=== PATIENT | male | born 1940 | race Caucasian/White ===

== ENCOUNTER 2016-09-11 07:30 | Inpatient (IN) | payer MEDICARE, OTHER ==
[2016-09-13] MEDS ORDERED: Lidocaine 1% with EPINEPHrine 1:100,000 50 ML MDV ONE (06:48)
[2016-09-13] MEDS ORDERED: Bupivacaine 0.5% 50 ML MDV ONE (06:48)
[2016-09-13] MEDS ORDERED: Dextrose 5%-Lactated Ringers 1,000 ML IV SCH ×2 (07:30→13:30)
[2016-09-13] MEDS ORDERED: HYDROmorphone/Normal Saline 15 MG/30 ML PCA IV PRN (08:09)
[2016-09-13] MEDS ORDERED: Naloxone 0.4 MG/ML SDV IVPUSH PRN (08:09)
[2016-09-13] MEDS ORDERED: Naloxone 0.4 MG/ML SDV IV PRN (08:12)
[2016-09-13] MEDS ORDERED: ceFAZolin 2 GM in Premix Bag 1 BAG IV ONE (08:45)
[2016-09-13] MEDS ORDERED: fentaNYL 250 MCG/5 ML SDV ONE (10:23)
[2016-09-13] MEDS ORDERED: Dexamethasone 4 MG/ML SDV ONE (10:27)
[2016-09-13] MEDS ORDERED: Ondansetron 4 MG/2 ML SDV ONE (10:27)
[2016-09-13] MEDS ORDERED: Rocuronium 50 MG/5 ML Vial ONE (10:27)
[2016-09-13] MEDS ORDERED: Propofol 200 MG/20 ML SDV ONE (10:27)
[2016-09-13] MEDS ORDERED: Neostigmine Methylsulfate 1 MG/ML 5 ML Syringe ONE (10:27)
[2016-09-13] MEDS ORDERED: Succinylcholine/Normal Saline 200 MG/10 ML Syringe ONE (10:27)
[2016-09-13] MEDS ORDERED: Linezolid 200 MG/100 ML Bag IV ONE (11:00)
[2016-09-13] MEDS: Ketoconazole 2% Crm 30 GM Tube TOP SCH ×2 (11:19→20:18)
[2016-09-13] MEDS ORDERED: Ondansetron 4 MG/2 ML SDV IVPUSH PRN (13:24)
[2016-09-13] MEDS: Carbidopa/Levodopa 25-100 MG Tab PO SCH ×2 (15:20→20:19)
[2016-09-13] MEDS: ceFAZolin 2 GM in Sodium Chloride 0.9% 50 ML IV SCH (17:26)
[2016-09-13] MEDS: Metoprolol Tartrate 50 MG Tab PO SCH (20:17)
[2016-09-13] MEDS: Melatonin 3 MG Tab PO SCH (20:18)
[2016-09-13] MEDS: Sennosides 8.6 MG Tab PO SCH (20:19)
[2016-09-13] MEDS: Acetaminophen/HYDROcodone 325-5 MG Tab PO PRN (20:25)
[2016-09-14] MEDS: ceFAZolin 2 GM in Sodium Chloride 0.9% 50 ML IV SCH ×3 (00:34→16:44)
[2016-09-14] MEDS: Aspirin 81 MG Tab.EC PO SCH (08:30)
[2016-09-14] MEDS: Metoprolol Tartrate 50 MG Tab PO SCH ×2 (08:30→21:27)
[2016-09-14] MEDS: FLUoxetine 20 MG Cap PO SCH (08:30)
[2016-09-14] MEDS: Lisinopril 20 MG Tab PO SCH (08:30)
[2016-09-14] MEDS: Sennosides 8.6 MG Tab PO SCH ×2 (08:31→21:28)
[2016-09-14] MEDS: Ketoconazole 2% Crm 30 GM Tube TOP SCH ×2 (08:31→21:27)
[2016-09-14] MEDS: Carbidopa/Levodopa 25-100 MG Tab PO SCH ×3 (08:31→21:28)
[2016-09-14] MEDS ORDERED: Allopurinol 300 MG Tab PO SCH (09:00)
--- NOTE | 2016-09-14 09:05 | PN ---
DATE OF SERVICE: 09/14/2016 SUBJECTIVE: Cr Simpson is postop day 1. He currently is quite sleepy. His vital signs otherwise have been stable. He is taking [place] without any difficulty. He has been up and ambulated. NIYA drain has put out 210 mL of a light red drainage. Temp-max is 97.6. OBJECTIVE: GENERAL: Mat is a 76-year-old male. HEENT: Negative. NECK: Supple. HEART: Regular rate and rhythm. LUNGS: Clear. ABDOMEN: Dressing are dry and intact. EXTREMITIES: Reveal trace peripheral edema. ASSESSMENT: Open repair of recurrent incarcerated right hernia with mesh, division of ilioinguinal nerve, and hydrocelectomy for recurrent incarcerated inguinal hernia on the right and hydrocele. Date of surgery is 09/13/2016. PLAN: Continue [place] p.r.n. pain. Good pulmonary toilet. Plan discharge in a.m. Dora Tapia PA-C /[id number]
[2016-09-14] MEDS: Acetaminophen/HYDROcodone 325-5 MG Tab PO PRN ×2 (13:19→19:38)
[2016-09-14] MEDS ORDERED: Acetaminophen 325 MG Tab PO PRN (13:34)
[2016-09-14] MEDS: Polyethylene Glycol 3350 Powder 17 GM Packet PO SCH (15:05)
[2016-09-14] MEDS: Melatonin 3 MG Tab PO SCH (21:27)
[2016-09-15] MEDS: ceFAZolin 2 GM in Sodium Chloride 0.9% 50 ML IV SCH ×2 (00:13→08:37)
[2016-09-15 07:45] VITALS: BP 108/55
[2016-09-15] MEDS: Metoprolol Tartrate 50 MG Tab PO SCH (08:44)
[2016-09-15] MEDS: Lisinopril 20 MG Tab PO SCH (08:44)
[2016-09-15] MEDS: FLUoxetine 20 MG Cap PO SCH (08:45)
[2016-09-15] MEDS: Aspirin 81 MG Tab.EC PO SCH (08:45)
[2016-09-15] MEDS: Carbidopa/Levodopa 25-100 MG Tab PO SCH (08:45)
[2016-09-15] MEDS: Ketoconazole 2% Crm 30 GM Tube TOP SCH (08:45)
[2016-09-15] MEDS: Polyethylene Glycol 3350 Powder 17 GM Packet PO SCH (08:45)
[2016-09-15] MEDS: Sennosides 8.6 MG Tab PO SCH (08:45)
--- NOTE | 2016-09-17 07:43 | OR ---
DATE OF PROCEDURE: 09/13/2016 PREOPERATIVE DIAGNOSIS: Recurrent incarcerated right inguinal hernia. POSTOPERATIVE DIAGNOSES: 1. Recurrent incarcerated right inguinal hernia. 2. Right hydrocele. 3. Right ilioinguinal nerve at risk for postoperative nerve entrapment. OPERATIVE PROCEDURES: 1. Open repair of recurrent incarcerated inguinal hernia with mesh (19046). 2. Right hydrocelectomy (56239). 3. Division of right ilioinguinal nerve (84376). ANESTHESIA: General. FACTORY REPRESENTATIVE: Dora Tapia PA-C INDICATIONS FOR PROCEDURE: This is a 76-year-old presenting with a large recurrent right inguinal hernia. This extends well down into the scrotum. Given the patient's obesity and potential airway problems, we plan to proceed with a general anesthetic and repair of the hernia. Mesh plug technique will be planned. The patient had a previous repair, which has recurred, and I think that this will be a repair that has a good likelihood of remaining intact if there is good fixation of the mesh to Carlos ligament. The potential risks were reviewed with the patient as well as the sister including bleeding, infection, recurrence of the hernia, injury to underlying viscera, as well as possibility of cardiopulmonary, septic, or hemorrhagic complications leading to were all reviewed, and they wished to proceed. DETAILS OF PROCEDURE: The patient was taken to the operating room and placed in the supine position. After general endotracheal anesthesia was induced, the abdomen, groin, and scrotal areas were prepped and draped. The previous right inguinal incision was then reused and carried down through the skin and subcutaneous tissue and down to the area of the hernia site. This extended below the external ring well into the scrotum. A small amount of intact external oblique aponeurosis was divided in the lateral aspect of the incision. The scrotal contents were then mobilized upward. This allowed potential reduction of what appeared to be some visible bowel within the hernia sac back into the peritoneal cavity. The patient was noted to have a separate hydrocele. This was excised as well with electrocautery and the edges sutured with some 3-0 Vicryl stitch. The hernia sac was then eventually dissected free down to the level of the internal ring. This has actually turned out to be an indirect hernia despite the patient having a previous repair. There was a large defect on the inguinal floor in general, and 2 extra-large mesh plugs were then used; one laterally, one more medially. Both of these were fixed to Carlos ligament with titanium tacking screws and then fixed to the underside of the conjoined tendon laterally, superiorly, and medially with horizontal mattress sutures of 0 Vicryl stitch. At that point, there appeared to be satisfactory repair of the hernia. The conjoined tendon was tacked down to the inguinal ligament with a running 0 Vicryl stitch, and the flat portion of the mesh plug system placed along the floor and sutured lateral to the cord structures with 3-0 Vicryl stitch. The ilioinguinal nerve was seen to be passing directly into that area of the flat mesh, and given this, it was felt to be high risk for entrapment by scar postoperatively with resulting chronic pain. Given this, it was divided and at that point, no further problems noted. The external oblique aponeurosis to the extent possibly was then closed with a 3-0 Vicryl stitch, as was the subcutaneous tissue, and skin closed with fabrice. Dressing was applied. The patient was taken to the recovery room in satisfactory condition. Physician home health assistant, Dora Tapia, played an essential role in assisting in this case, helping to position the patient, retract structures as needed, suturing and stapling when indicated. Her presence improved patient safety and decreased operative time. Yonathan Mix MD /[id number] Cc: [place], [place]
--- NOTE | 2016-09-17 12:17 | DISCH ---
FINAL DIAGNOSES: 1. Recurrent incarcerated right inguinal hernia associated with right hydrocele. 2. Right ilioinguinal nerve at risk for entrapment. 3. History of hypertension. 4. History of aortic stenosis. 5. Chronic renal insufficiency. 6. Memory deficit. 7. Parkinson disease associated with dementia. OPERATIVE PROCEDURES: This was done on 09/13/2016, open repair of recurrent incarcerated right inguinal hernia, right hydrocelectomy, and division of right ilioinguinal nerve. HOSPITAL COURSE: This is a 76-year-old presenting with a very large recurrent right inguinal hernia, extending well into the scrotum. On the date of admission, under general anesthesia the patient underwent repair of this. It was a quite complex repair. He also got a hydrocelectomy and the ilioinguinal nerve was felt to be at risk for nerve entrapment and was divided. Postoperatively, the patient has had no major problems. He will be discharged back to the shelter today. He will have the NIYA drain down in the scrotum, which we will leave in until we see him back on this coming Saturday, 09/19. He will be on his usual shelter medications with the addition of move the Senokot up to b.i.d. and [place] 5/325 was given 1 tablet q.6 hours p.r.n., although we recommend using plain Tylenol preferentially.
== END 2016-09-15 11:18 | DRG 352 ==
LOC: JP.SDS 09-13 06:42 → JP.MS 09-13 06:42 → JP.2SS 09-13 13:00 → EDSTATUS 09-13 13:00 → JP.2SS 09-13 19:59
PROVIDERS: ADMIT Surgery; ATTEND Surgery
PROC: 018 Peripheral Nervous System, Division (ICD-10-PCS; principal; 2016-09-13)
PROC: 0VBF0ZZ Excision of Right Spermatic Cord, Open Approach (ICD-10-PCS; principal; 2016-09-13)
PROC: 0YU50JZ Supplement Right Inguinal Region with Synthetic Substitute, Open Approach (ICD-10-PCS; principal; 2016-09-13)
DX: K40.31 Unilateral inguinal hernia, with obstruction, without gangrene, recurrent (principal); N43.2 Other hydrocele; N40.0 Benign prostatic hyperplasia without lower urinary tract symptoms; I12.9 Hypertensive chronic kidney disease with stage 1 through stage 4 chronic kidney disease, or unspecified chronic kidney disease; N18.3 Chronic kidney disease, stage 3 (moderate); G20 Parkinson's disease; F02.80 Dementia in other diseases classified elsewhere, unspecified severity, without behavioral disturbance, psychotic disturbance, mood disturbance, and anxiety; I35.0 Nonrheumatic aortic (valve) stenosis; Z79.82 Long term (current) use of aspirin
CPT/HCPCS: 88302; 94762; A9270-GY; C1781; J0690; J1100; J1170; J2020; J2405; J2704; J3010; J7042; J7050

== ENCOUNTER 2016-10-22 11:20 | Emergency (ER) | payer MEDICARE ==
--- NOTE | 2016-10-22 12:28 | EDM.PDOC ---
ED HPI GENERAL MEDICAL PROBLEM - General Chief Complaint: Lower Extremity Injury/Pain Stated Complaint: RT SWOLLEN FOOT Time Seen by Provider: 10/22/16 12:00 Source of Information: Reports: Patient, Family History Limitations: Reports: No Limitations - History of Present Illness INITIAL COMMENTS - FREE TEXT/NARRATIVE: Cr is a 76 year old male who presents to the ED with is family member today for evaluation of right foot/ankle swelling and redness. Patient reports it started yesterday, jail staff marked redness today and when it became worse they sent patient here for evaluation. Patient denies any real pain to area, he denies any fever/chills/nausea/vomiting. Patient is on allopurinol for hx of gout, he reports he has not had a gout flare "for a long time". Onset: Sudden Duration: Day(s): (1) - Related Data Allergies Allergy/AdvReac Type Severity Reaction Status Date / Time No Known Allergies Allergy Verified 10/22/16 11:44 Home Meds: Home Meds Allopurinol [Allopurinol] 100 mg PO DAILY 01/07/15 [History] Aspirin [Ecotrin] 81 mg PO DAILY 01/07/15 [History] Cyanocobalamin (Vitamin B-12) [Vitamin B-12] 1,000 mcg PO DAILY 01/07/15 [ History] FLUoxetine HCl [Fluoxetine HCl] 20 mg PO DAILY 01/07/15 [History] Metoprolol Tartrate [Lopressor] 50 mg PO BID 01/07/15 [History] Acetaminophen [Pain Relief] 1 - 2 tab PO Q6HR PRN 09/07/16 [History] Carbidopa/Levodopa [Carbidopa-Levodopa 25-100 Tab] 1 tab PO QID 09/07/16 [ History] Clotrimazole [Clotrimazole 1%] 1 applic TOP BID 09/07/16 [History] Ketoconazole [Nizoral 2% Crm] 1 applic TOP Q72HR 09/07/16 [History] Lisinopril [Lisinopril] 40 mg PO DAILY 09/07/16 [History] Selenium Sulfide [Selsun Blue] 1 applic TOP .TWICE A WEEK 09/07/16 [History] Sennosides [Natural Senna Laxative] 8.6 mg PO BID 09/07/16 [History] Glucosamine/Chondro [place]aney A [Glucosamine-Chondroitin Tab] 3 tab PO BID 09/15/16 [ History] Tamsulosin [Flomax] 0.4 mg PO DAILY 09/15/16 [History] Past Medical History HEENT History: Reports: Cataract, Impaired Vision Cardiovascular History: Reports: Hypertension Respiratory History: Reports: None Gastrointestinal History: Reports: Chronic Constipation Genitourinary History: Reports: Chronic Renal Insuffiency Musculoskeletal History: Reports: None Neurological History: Reports: Parkinson's Psychiatric History: Reports: Depression Endocrine/Metabolic History: Reports: None Hematologic History: Reports: None Immunologic History: Reports: None Oncologic (Cancer) History: Reports: None Dermatologic History: Reports: Seborrheic Dermatitis - Infectious Disease History Infectious Disease History: Reports: Chicken Pox, Measles, Mumps - Past Surgical History Head Surgeries/Procedures: Reports: None HEENT Surgical History: Reports: Cataract Surgery Other Cardiovascular Surgeries/Procedures: CARDIAC CATH FOR AORTIC STENOSIS GI Surgical History: Reports: Colonoscopy, Hernia, Inguinal Musculoskeletal Surgical History: Reports: None Social & Family History - Family History Family Medical History: Noncontributory - Tobacco Use Smoking Status *Q: Never Smoker Years of Tobacco use: 30 Packs/Tins Daily: 0.5 Used Tobacco, but Quit: Yes Month Tobacco Last Used: 25 YEARS AGO Second Hand Smoke Exposure: No - Caffeine Use Caffeine Use: Reports: Coffee - Recreational Drug Use Recreational Drug Use: No Review of Systems - Review of Systems Review Of Systems: ROS reveals no pertinent complaints other than HPI. Trauma Exam - Physical Exam Exam: See Below Exam Limited By: No Limitations General Appearance: Reports: Alert, WD/WN, No Apparent Distress Head: Reports: Atraumatic Respiratory Exam: Reports: No Respiratory Distress, Lungs Clear Cardiovascular: Reports: Normal Peripheral Pulses, Regular Rate, Rhythm GI/Abdominal: Reports: Normal Bowel Sounds, Soft, Non-Tender, Distended Extremities: Non-Tender, Other (swelling and erythema to right medial malleolar region extending into inner lateral right foot and up mid calf) Neurologic: Reports: Alert, Normal Mood/Affect Skin: Reports: Other (erythema, swelling) Course - Vital Signs Text/Narrative:: Cr is a 76 year old male, jail patient with a hx of gout who presents to the ED today with his family member for evaluation of right foot/ ankle swelling and redness. Patient developed symptoms yesterday, they have gradually been improving. Patient was sent here for concerns of DVT. Patient on my exam is well hydrated, he is non-toxic appearing. Right ankle/foot are swollen and erythematous as noted in exam. Area is mildly warm to touch but not hot and patient really denies any pain, making this likely not an acute gout flare, more consistent with an early cellulitis. Blood work was evaluated today including CBC which returns with a normal white count, CMP returns with a mildly elevated anion gap of 4.4 and is otherwise within normal limits. ESR and CRP are also both mildly elevated at 22 and 0.73. Uric Acid is normal. US was obtained as jail is concerned, I feel that a blood clot is not likely based on exam. US is negative. Area of erythema was marked with skin marker. Patient was given a dose of IV Rocephin here in the ED, I will start him on Keflex for 7 days which patient can start his first dose at midnight tonight. Paper work was completed for [place] staff and family and patient were updated on plan of care and are agreeable. Patient was encouraged to see his primary care in one week. Reasons to return to the ED discussed in detail. Patient discharged in stable condition and ambulatory. Last Recorded V/S: Last Vital Signs Temp 35.8 C 10/22/16 13:09 Pulse 54 L 10/22/16 13:09 Resp 16 10/22/16 13:09 BP 121/75 10/22/16 13:09 Pulse Ox 95 10/22/16 13:09 - Orders/Labs/Meds Orders: Active Orders 24 hr Category Date Time Status Peripheral IV Care [RC] . DIRECTED Care 10/22/16 13:04 Active VL Duplex Lwr Ext Veins Ltd Rt [US] Stat Exams 10/22/16 13:14 Taken Peripheral IV Insertion Adult [OM.PC] Routine Oth 10/22/16 13:04 Ordered Labs: Laboratory Tests 10/22/16 10/22/16 10/22/16 Range/Units 12:05 12:05 12:05 WBC 6.7 (4.5-11.0) K/uL RBC 4.15 L (4.30-5.90) M/uL Hgb 13.2 (12.0-15.0) g/dL Hct 40.3 (40.0-54.0) % MCV 97 (80-98) fL MCH 32 H (27-31) pg MCHC 33 (32-36) % Plt Count 100 L (150-400) K/uL Neut % (Auto) 60 (36-66) % Lymph % (Auto) 24 (24-44) % [place] % (Auto) 14 H (2-6) % Eos % (Auto) 3 (2-4) % Baso % (Auto) 0 (0-1) % ESR 22 H (0-20) mm/hr Sodium 142 (140-148) mmol/L Potassium 4.1 (3.6-5.2) mmol/L Chloride 108 (100-108) mmol/L Carbon Dioxide 30 (21-32) mmol/L Anion Gap 4.4 L (5.0-14.0) mmol/L BUN 17 (7-18) mg/dL Creatinine 1.1 (0.8-1.3) mg/dL Est Cr Clr Drug Dosing 62.75 mL/min Estimated GFR (MDRD) > 60 (>60) Glucose 71 L (74-106) mg/dL Uric Acid 5.3 (3.5-7.2) mg/dL Calcium 8.3 L (8.5-10.1) mg/dL Total Bilirubin 0.8 (0.2-1.0) mg/dL AST 17 (15-37) U/L ALT 10 L (12-78) U/L Alkaline Phosphatase 83 (46-116) U/L C-Reactive Protein 0.73 H (0.0-0.3) mg/dL Total Protein 6.4 (6.4-8.2) g/dL Albumin 3.5 (3.4-5.0) g/dL Globulin 2.9 (2.3-3.5) g/dL Albumin/Globulin Ratio 1.2 (1.2-2.2) Meds: Medications Discontinued Medications Generic Name Dose Route Start Last Admin Trade Name Sherly PRN Reason Stop Dose Admin Acetaminophen 650 mg 10/22/16 14:12 10/22/16 14:42 Tylenol PO 10/22/16 14:13 650 mg NOW ONE Administration Ceftriaxone Sodium 1 gm/ 50 mls @ 100 mls/hr 10/22/16 13:15 10/22/16 13:32 Sodium Chloride IV 10/22/16 13:44 100 mls/hr ONETIME ONE Administration Sodium Chloride 10 ml 10/22/16 13:04 10/22/16 13:33 Saline Flush FLUSH 10 ml ASDIRECTED PRN Administration Keep Vein Open Departure - Departure Time of Disposition: 14:45 Disposition: DC/Tfer to SNF 03 Condition: good Clinical Impression: Cellulitis Qualifiers: Site of cellulitis: extremity Site of cellulitis of extremity: lower extremity Laterality: right Qualified Code(s): L03.115 - Cellulitis of right lower limb - Discharge Information Instructions: Cellulitis, Adult Referrals: Derik Shipman MD [Primary Care Provider] - Forms: ED Department Discharge Additional Instructions: Take Keflex as prescribed starting tomorrow. Follow up with Primary care later this week. Return to the ED with any worsening symptoms. - My Orders Last 24 Hours: My Active Orders 10/22/16 13:04 Peripheral IV Care [RC] . DIRECTED Peripheral IV Insertion Adult [OM.PC] Routine 10/22/16 13:14 VL Duplex Lwr Ext Veins Ltd Rt [US] Stat - Assessment/Plan Last 24 Hours: My Active Orders 10/22/16 13:04 Peripheral IV Care [RC] . DIRECTED Peripheral IV Insertion Adult [OM.PC] Routine 10/22/16 13:14 VL Duplex Lwr Ext Veins Ltd Rt [US] Stat
[2016-10-22] MEDS ORDERED: Sodium Chloride 0.9% 10 ML Syringe FLUSH PRN (13:04)
[2016-10-22] MEDS ORDERED: cefTRIAXone 1 GM in Sodium Chloride 0.9% 50 ML IV ONE ×2 (13:05→13:15)
[2016-10-22 13:10] VITALS: BP 121/75
[2016-10-22] MEDS ORDERED: Acetaminophen 325 MG Tab PO ONE (14:12)
--- NOTE | 2016-10-23 14:08 | US ---
VL Duplex Lwr Ext Veins Ltd Rt FINDINGS: Ultrasound examination of the right lower extremity using Doppler and compressive techniqu e demonstrates that the common femoral, femoral, and popliteal veins are patent, and negative for th rombus. The calf veins were segmentally visualized and are negative where seen. IMPRESSION: Lower extremity negative for deep venous thrombosis.
== END 2016-10-22 14:48 ==
LOC: JP.ED 11:20
DX: L03.115 Cellulitis of right lower limb (principal); I12.9 Hypertensive chronic kidney disease with stage 1 through stage 4 chronic kidney disease, or unspecified chronic kidney disease; N18.9 Chronic kidney disease, unspecified; F32.9 Major depressive disorder, single episode, unspecified; G20 Parkinson's disease; Z98.49 Cataract extraction status, unspecified eye; Z98.890 Other specified postprocedural states; Z79.82 Long term (current) use of aspirin; Z79.899 Other long term (current) drug therapy
CPT/HCPCS: 36415; 80053; 84550; 85025; 85651; 86140; 93971; 96365; 99285; A9270; J0696; J7050; 99284